=== PATIENT | male | born 1950 | race Two or more races ===

== ENCOUNTER → 2017-01-14 | Outpatient (REF) | payer MEDICARE, OTHER ==
[2017-01-14 12:50] LABS: BASO % 0.5 % (0.0-1.0); EOS # 0.1 K/mm3 (0.0-0.50); EOS % 2.2 % (0.0-3.0); LARGE UNSTAINED CELL # 0.1 K/mm3 (0.0-0.4); LARGE UNSTAINED CELL % 1.7 % (0.0-4.0); LYMPH # 1.2 K/mm3 (1.5-4.5); LYMPH % 21.7 % (24.0-44.0); MEAN CORPUSCULAR HEMOGLOBIN 31.1 pg (27.0-33.0); MEAN CORPUSCULAR HGB CONC 34.5 g/dl (32.0-36.5); MEAN CORPUSCULAR VOLUME 90.1 fl (80.0-96.0); MONO # 0.3 K/mm3 (0.0-0.8); MONO % 6.5 % (0.0-5.0); NEUTROPHILS # 3.5 K/mm3 (1.8-7.7); NEUTROPHILS % 67.4 % (36.0-66.0); PLATELET COUNT, AUTOMATED 149 k/mm3 (150-450); RED CELL DISTRIBUTION WIDTH 13.7 % (11.5-14.5); WHITE BLOOD COUNT 5.2 K/mm3 (4.0-10.0)
[2017-01-14 13:16] LABS: ALBUMIN 3.9 GM/DL (3.2-5.2); ALBUMIN/GLOBULIN RATIO 1.56 (1.00-1.93); ALKALINE PHOSPHATASE 76 U/L (45-117); ALT/SGPT 46 U/L (12-78); ANION GAP 8 MEQ/L (8-16); AST/SGOT 27 U/L (15-37); BILIRUBIN,TOTAL 1.1 MG/DL (0.2-1.0); BLOOD UREA NITROGEN 21 MG/DL (7-18); CALCIUM LEVEL 9.1 MG/DL (8.8-10.2); CARBON DIOXIDE LEVEL 25 MEQ/L (21-32); CHLORIDE LEVEL 110 MEQ/L (98-107); CHOLESTEROL LEVEL 171 MG/DL (<200); CREATININE FOR GFR 1.09 MG/DL (0.70-1.30); FREE T4 0.99 NG/DL (0.76-1.46); GLOMERULAR FILTRATION RATE > 60.0 (>49); GLUCOSE, FASTING 92 MG/DL (80-110); POTASSIUM SERUM 4.1 MEQ/L (3.5-5.1); SODIUM LEVEL 143 MEQ/L (136-145); TOTAL PROTEIN 6.4 GM/DL (6.4-8.2); TRIGLYCERIDES LEVEL 104 MG/DL (<150)
== END ==
LOC: M SFHCPLAZ 08:22
PROVIDERS: ATTEND Family Medicine
DX: E29.1 Testicular hypofunction (principal); E78.00 Pure hypercholesterolemia, unspecified

== ENCOUNTER → 2017-02-12 | Outpatient (REF) | payer MEDICARE, BC, OTHER ==
[2017-02-12 13:30] LABS: FOLATE 11.6 NG/ML (>5.4)
== END ==
LOC: M SFHCADAM 11:00
PROVIDERS: ATTEND Family Medicine
DX: R20.8 Other disturbances of skin sensation (principal)
CPT/HCPCS: 82607; 82746; G0463

== ENCOUNTER → 2018-02-16 | Outpatient (REF) | payer MEDICARE, OTHER ==
[2018-02-19 08:06] LABS: ERYTHROPOIETIN 12.2 mIU/mL (2.6-18.5)
== END ==
LOC: M LAB REF 02-18 11:13
DX: R71.8 Other abnormality of red blood cells (principal)
CPT/HCPCS: 82668

== ENCOUNTER → 2018-02-16 | Outpatient (REF) | payer MEDICARE, OTHER ==
[2018-02-16 13:11] LABS: TESTOSTERONE 340 NG/DL (241-827)
== END ==
LOC: M LAB REF 12:00
DX: E29.1 Testicular hypofunction (principal)
CPT/HCPCS: 84403

== ENCOUNTER → 2019-02-21 | Outpatient (REF) | payer MEDICARE, OTHER ==
[~2019-02-21] MED LIST: LISI10TA4 PO
[2019-02-21 18:08] LABS: URIC ACID 5.9 MG/DL (3.5-7.2)
== END ==
LOC: M LAB REF 17:21
PROVIDERS: ATTEND Nurse Practitioner Adult Health
DX: E29.1 Testicular hypofunction (principal); M25.579 Pain in unspecified ankle and joints of unspecified foot

== ENCOUNTER → 2020-04-15 | Outpatient (CLI) | payer MEDICARE, BC, OTHER ==
--- NOTE | 2020-04-17 07:40 | SLEEPCENT ---
DATE: 04/15/2020 ORDERED BY: Dr. Miladis Egan Nocturnal polysomnography was performed for assessment of sleep physiology in this patient with a history of excessive somnolence and nonrestorative sleep. There was 6 hours and 43 minutes of data reviewed. There was 234.5 minutes of sleep identified. Sleep latency was prolonged at 82 minutes. REM latency was short at 91 minutes. Sleep architecture showed fragmentation. There were three REM cycles. Overall sleep efficiency was 58.7%. The electrocardiogram showed a sinus rhythm with some rate variability. Average heart rate 56 beats per minute. Rate ranged 40-80. EEG showed normal waveforms for wake and sleep. There were 39 respiratory events identified of 10 seconds in duration or greater for an apnea- hypopnea index of 10. The events were obstructive, more frequent but not exclusive to the supine posture. Arousals from respiratory events occurred 6.7 times per hour, and oxygen desaturations were seen into the mid 80s. There was some scattered limb activity. Limb movement arousal index was 4.3, and remaining measures of sleep physiology were normal. IMPRESSION: Obstructive sleep apnea syndrome (G47.33). RECOMMENDATION: Sleep position retraining for avoidance of the supine posture may be somewhat helpful; however, given the oxygen desaturations seen, referral back to the sleep disorder center for pressure therapy is recommended. In the interim, alcohol and sedative avoidance should be practiced and caution exercised during the operation of motor vehicles. MTDD
== END ==
LOC: M SLEEP 20:00
PROVIDERS: ATTEND Nurse Practitioner Family
DX: G47.33 Obstructive sleep apnea (adult) (pediatric) (principal)

== ENCOUNTER → 2020-05-12 | Outpatient (CLI) | payer MEDICARE, BC, OTHER ==
--- NOTE | 2020-05-15 07:16 | SLEEPCENT ---
DATE: 05/12/2020 ORDERED BY: DMITRIY Newman Nocturnal polysomnography was performed for the titration of pressure therapy in this patient with obstructive sleep apnea syndrome, apnea-hypopnea index of 10. For testing, a [employer]Med Airfit F20 full face mask of large size was used, 4 cm of water pressure were applied to the circuit and the lights were extinguished. Six hours and 52 minutes of data were reviewed. There were 155.5 minutes of sleep identified. Sleep latency was quite prolonged at 119 minutes. REM sleep onset was short at 56 minutes. Sleep architecture improved after optimal pressure was achieved, and there were two REM cycles noted. Overall sleep efficiency was 38.3%. The electrocardiogram showed a sinus rhythm with small complexes. Average heart rate of 50 beats per minute. EEG showed normal waveforms for wake and sleep. Respiratory events were fully palliated with CPAP at a pressure of +6. There was some activity noted in the limb leads. A movement arousal index on this occasion of 11.2. IMPRESSION: Obstructive sleep apnea syndrome (G47.33). RECOMMENDATION: Nightly use of pressure therapy 6 cm of water. MTDD
== END ==
LOC: M SLEEP 20:00
PROVIDERS: ATTEND Nurse Practitioner Family
DX: G47.33 Obstructive sleep apnea (adult) (pediatric) (principal)